=== PATIENT | male | born 1955 | race Native Hawaiian/Other Pacific Islander ===

== ENCOUNTER 2021-07-24 15:29 | Outpatient (CLI) | payer OTHER ==
[2021-07-24 15:49] LABS: PLATELET COUNT 218 K/uL (142-355)
[2021-07-24 15:58] LABS: POTASSIUM 4.3 mmol/L (3.6-5.2)
== END 2021-07-24 21:15 | disposition home or self-care (01) ==
LOC: LABW 15:29
PROVIDERS: ATTEND Nurse Practitioner Family
DX: R06.09 Other forms of dyspnea (principal)
CPT/HCPCS: 36415; 80053; 82550; 82553; 83880; 84484; 85027; 85379